=== PATIENT | male | born 1935 | race Caucasian/White ===

== ENCOUNTER 2021-03-12 08:40 | Emergency (ER) | payer MEDICARE, OTHER ==
[~2021-03-12] VITALS: Ht 177.8 cm; Wt 69.7 kg
[~2021-03-12 08:40] MED LIST: SIMV20TA18 PO; TRIA1CAP3 PO; WARF4TAB64 PO; WARF4TAB68 PO
--- NOTE | 2021-03-12 09:03 | PHYS DOC ---
Past History Past Medical History: CAD, CHF Past Surgical History: Pacemaker Alcohol Use: None Drug Use: None General Adult EDM: Chief Complaint: MULTIPLE COMPLAINTS HPI: HPI: Patient is a 85 year old male on warfarin who presents with a fall approximately a week ago. Has had ongoing left-sided chest wall pain. Denies shortness of breath, but pain is worse with deep inspiration and with coughing. He has been fatigued and having a harder time getting around since then. Denies head strike, LOC, headache, or confusion since. Denies any neck pain or midline back pain. Denies hip pain. States that he was working out in the field when he tripped and fell onto his left side. Review of Systems: Review of Systems: Constitutional: Denies fever or chills Eyes: Denies change in visual acuity HENT: Denies nasal congestion or sore throat Respiratory: Denies cough or shortness of breath Cardiovascular: Denies palpitations or edema GI: Denies abdominal pain, nausea, vomiting, bloody stools or diarrhea : Denies dysuria Musculoskeletal: + chest wall pain, Denies back pain or joint pain Integument: Denies rash Neurologic: Denies headache, focal weakness or sensory changes Endocrine: Denies polyuria or polydipsia Lymphatic: Denies swollen glands Psychiatric: Denies depression or anxiety Family History: Family History: No pertinent family history Allergies: Allergies: Allergies Coded Allergies Type Severity Reaction Last Updated Verified Penicillins Allergy Intermediate 06/20/14 Yes Physical Exam: PE: Constitutional: Well developed, well nourished, no acute distress, non-toxic appearance. [] HENT: Normocephalic, atraumatic, bilateral external ears normal, oropharynx moist, no oral exudates, nose normal. [] Eyes: PERRLA, EOMI, conjunctiva normal, no discharge. [] Neck: No C-spine tenderness to palpation of the midline. Normal range of motion. Trachea midline.. [] Cardiovascular:Heart rate regular rhythm, no murmur [] Lungs & Thorax: Normal chest excursion bilaterally. Normal work of breathing. Lung sounds present bilaterally. No chest wall crepitus. Does have left lateral rib tenderness to palpation. [] Abdomen: Soft nondistended. LUQ tenderness to palpation [] Skin: Warm, dry, no erythema, no rash. [] Back: No tenderness, no CVA tenderness. [] Extremities: No tenderness, no cyanosis, no clubbing, ROM intact, no edema. [] Neurologic: Alert and oriented X 3, normal motor function, normal sensory function, no focal deficits noted. [] Psychologic: Affect normal, judgement normal, mood normal. [] EKG: EKG: [] Radiology/Procedures: Radiology/Procedures: [] Impressions: [place] [id number] IMAGING REPORT Signed PATIENT: KAROLYN HART ACCOUNT: [id number] : 1935 LOCATION: ER AGE: 85 SEX: M EXAM STATUS: REG ER ORD. PHYSICIAN: REHANA CARTER MD REASON: fall, on warfarin PROCEDURE: CT HEAD AND CERVICAL SPINE WO CT HEAD AND C-SPINE WO History: Fall on warfarin Comparison: None. Technique: Noncontrast CT of the head and cervical spine. Findings: CT HEAD: There is no evidence for intracranial mass or hemorrhage. There is no hydrocephalus or midline shift. No abnormal extra-axial fluid collections are present. Anderson/white matter differentiation is preserved. The visualized paranasal sinuses and mastoid air cells are clear. The skull and scalp are within normal limits. CT CERVICAL SPINE: There is no evidence for fracture in the cervical spine. Straightening of the normal cervical lordosis. Multilevel degenerative disc and facet disease with moderate to severe disc space narrowing at C3-C4, C5-C6 and C6-C7. Circumferential osteophyte at C3-C4 narrows the thecal space to 7 mm. C5-C6 osteophyte narrows the thecal space to 8 mm. No destructive osseous lesions are seen. Limited evaluation of the soft tissues of the neck and of the upper chest is unremarkable. Impression: 1. No acute intracranial findings. 2. No acute osseous abnormality in the cervical spine. 3. Multilevel degenerative disc and facet disease of the cervical spine causes cervical stenosis at a few levels, 7 mm AP thecal space at C3-C4. ------- Exposure: One or more of the following individualized dose reduction techniques were utilized for this examination: 1. Automated exposure control 2. Adjustment of the mA and/or kV according to patient size 3. Use of iterative reconstruction technique. Electronically signed by: Baldemar Carrera MD (03/12/2021 10:33 AM) [id number] DICTATED AND SIGNED BY: BALDEMAR CARRERA MD DATE: 03/12/21 1028 CC: REHANA CARTER MD; SYEDA CARTY MD ~MTH0 [address] [address] IMAGING REPORT Signed PATIENT: KAROLYN HART ACCOUNT: [id number] : 1935 LOCATION: ER AGE: 85 SEX: M EXAM STATUS: REG ER ORD. PHYSICIAN: REHANA CARTER MD REASON: fall on blood thinners, left chest wall pain, LUQ ttp PROCEDURE: CT CHEST ABD PELVIS W/CONTRAST EXAM: CT Chest, Abdomen and Pelvis with IV contrast CLINICAL HISTORY: Reason: fall on blood thinners, left chest wall pain, LUQ ttp / Spl. Instructions: OMNI 300 60ML REDUCED DOSE , CREAT 1.2 / History: COMPARISON: None. TECHNIQUE: Helical CT of the chest, abdomen and pelvis was performed following the administration of intravenous contrast. Axial, coronal and sagittal reformatted images were generated. ---PQRS compliance statement - One or more of the following individualized dose reduction techniques were utilized for this study: 1. Automated exposure control 2. Adjustment of the mA and/or kV according to patient size 3. Use of iterative reconstruction technique--- FINDINGS: Chest: Heart is mildly enlarged. Coronary calcifications are seen. Pacer leads are seen within the heart. Enlargement of the right atrium and left atrium. Mitral annular and aortic root calcifications are seen. Enlargement of the pulmonary arteries there is no pulmonary arterial hypertension. Small left and smal [id number]-pf-hnubseyy right pleural effusions. Prominent axillary lymph nodes are seen. Enlarged mediastinal and hilar lymph nodes are seen. For example: Right paratracheal lymph node measures 1.5 x 1.3 cm (5/32) distal esophageal thickening may be seen with esophagitis or esophageal mass and can be correlated with endoscopy if clinically indicated. Trace right pneumothorax. Right pleural thickening and enhancement. Abdomen and Pelvis: Liver and biliary system: 11 mm enhancing posterior right hepatic lobe lesion. Liver is mildly nodular in contour may be seen with cirrhosis. Heterogeneous attenuation of the liver 2.3 x 2 cm low-density lesion is seen (image 43). Accounting for postcholecystectomy change, no biliary ductal dilatation. Spleen: Unremarkable Pancreas: Unremarkable Adrenal glands: Unremarkable Kidneys: Symmetric nephrograms. Exophytic 1.5 cm right upper pole renal lesion measures about 45 Hounsfield units. Subcentimeter hypodense left upper pole renal lesion is too small to accurately characterize. Lymph nodes/retroperitoneum: Abdominal and pelvic lymphadenopathy. [employer] Forms lymph nodes: Left para-aortic lymph node measures 2.1 x 1.5 cm (series 8 image 61). Right iliac chain lymphadenopathy measures 1.3 x 1 cm. Vessels: Patient are seen. Dense splenic artery calcifications and SMA calcifications are seen. Bowel/Peritoneal cavity: Appendix is normal. Moderate colonic stool content is seen. No small or large bowel dilatation. No bowel obstruction. Eccentric thickening of the rectum (series 8 image 132) No abdominal pelvic ascites. Abdominal wall: Trace fat-containing periumbilical hernia is seen. Bladder: Small bladder diverticula are seen. Gallbladder wall thickening may be seen with cystitis. Bones: Decreased bone density limits evaluation for aggressive bony lesion. Within these constraints no aggressive osseous lesion is seen. Advanced multilevel degenerative changes of the spine are noted. Nondisplaced fracture of the right eighth and ninth ribs laterally. Acute fractures of the posterior right first and second ribs. Acute displaced fractures of the posterolateral left eighth-11th ribs posterolaterally. Nondisplaced fracture of the left L1 transverse process. Left iliopsoas bursal distention is incidentally seen. IMPRESSION: 1. Acute fractures of the ribs bilaterally as described above. Trace right pneumothorax. 2. Bilateral pleural effusions. 3. Bilateral interstitial prominence and patchy opacities of the lungs, possibly infectious/inflammatory process although underlying chronic interstitial lung disease may have this appearance as well. 4. Enhancing posterior right hepatic lobe lesion is nonspecific and although may represent flash filling hemangioma. 5. Heterogeneous attenuation of the liver possibly from cirrhosis although underlying low-density liver lesions are also consideration. 6. Thoracic, abdominal and pelvic lymphadenopathy or possibly reactive although metastatic disease is a consideration. 7. Thickening of the rectum and esophagus, possibly prostatitis/colitis and esophagitis. Underlying mass is not excluded and can be correlated with colonoscopy/endoscopy. Electronically signed by: Junior Pacheco MD (03/12/2021 10:36 AM) [id number] DICTATED AND SIGNED BY: JUNIOR PACHECO MD DATE: 03/12/21 1019 CC: REHANA CARTER MD; SYEDA CARTY MD ~MTH0 0 Heart Score: C/O Chest Pain: N/A (Traumatic chest wall pain) Risk Factors: Risk Factors: DM, Current or recent (<one month) smoker, HTN, HLP, family history of CAD, obesity. Risk Scores: Score 0 - 3: 2.5% MACE over next 6 weeks - Discharge Home Score 4 - 6: 20.3% MACE over next 6 weeks - Admit for Clinical Observation Score 7 - 10: 72.7% MACE over next 6 weeks - Early Invasive Strategies Course & Med Decision Making: Course & Med Decision Making Pertinent Labs and Imaging studies reviewed. (See chart for details) Patient 85-year-old male on warfarin who presents with ongoing left-sided chest wall pain since a mechanical fall from standing 1 week ago. On arrival is alert, oriented, and hemodynamically stable. Exam pertinent for left-sided chest wall tenderness, and left upper quadrant tenderness to palpation. Due to concern for rib fracture, potential hemothorax, and potentially splenic injury CT chest, abdomen, pelvis obtained. Due to his age and fall on a blood thinner, CT head and neck will also be performed. 0903 CT shows multiple bilateral rib fractures, L1 transverse process fracture, trace pneumothorax on the right, and bilateral pleural effusions/potential hemothorax. His vital signs remained stable. I do not feel that he requires emergent ED chest tube placement. INR is 1.7. Will not reverse. Hemoglobin is 11, with unknown baseline. is arrived and states that he has had increasing weakness and pain over the past few days. With these multiple injuries will discuss admission to [facility] with trauma surgeon on-call. 1050 Discussed transfer with on-call surgeon, Dr. Garza, who felt the patient was suitable for admission to the [facility]. Will discuss transfer with hospitalist. 1112 [facility] transfer center indicates that there are no ICU or intermediate care beds. Will attempt to call other facilities with trauma services. 1145 Accepted for ED to ED transfer at [facility]. 1208 Frank Disclaimer: Frank Disclaimer: This electronic medical record was generated, in whole or in part, using a voice recognition dictation system. Departure Departure: Impression: Primary Impression: Multiple fractures of ribs, bilateral, initial encounter for closed fracture Additional Impressions: Bilateral pleural effusion Pneumothorax, right Disposition: 02 SHORT TERM [facility]OSPITAL Condition: STABLE Referrals: SYEDA CARTY MD (PCP) REHANA CARTER MD Mar 12, 2021 09:03
[2021-03-12 09:20] LABS: BASO % 1 % (0-3); EOS # 0.2 x10^3/uL (0.0-0.7); EOS % 3 % (0-3); HEMATOCRIT 32.7 % (39.0-53.0); LYMPH # 0.8 x10^3/uL (1.0-4.8); LYMPH % 11 % (24-48); MEAN CORPUSCULAR HEMOGLOBIN 32 pg (25-35); MEAN CORPUSCULAR HGB CONC 34 g/dL (31-37); MEAN CORPUSCULAR VOLUME 95 fL (79-100); MONO # 0.6 x10^3/uL (0.0-1.1); MONO % 9 % (0-9); NEUT # 5.8 x10^3uL (1.8-7.7); NEUT % 78 % (31-73); PLATELET COUNT 278 x10^3/uL (140-400); RED BLOOD COUNT 3.43 x10^6/uL (4.30-5.70); RED CELL DISTRIBUTION WIDTH 13.9 % (11.5-14.5); WHITE BLOOD COUNT 7.5 x10^3/uL (4.0-11.0)
[2021-03-12 09:26] LABS: CALCIUM 8.7 mg/dL (8.5-10.1); CREATININE 1.2 mg/dL (0.7-1.3); GFR 57.3; POTASSIUM 5.6 mmol/L (3.5-5.1)
[2021-03-12] MEDS ORDERED: IOHEXOL 300 MG/ML 75 ML VIAL. IV ONE (09:30)
[2021-03-12 09:31] LABS: ALBUMIN 3.4 g/dL (3.4-5.0); ALBUMIN/GLOBULIN RATIO 0.8 (1.0-1.7); TOTAL BILIRUBIN 1.6 mg/dL (0.2-1.0); TOTAL PROTEIN 7.6 g/dL (6.4-8.2)
[2021-03-12 10:17] VITALS: BP 136/69
--- NOTE | 2021-03-12 10:25 | EKG ---
[address] [address] Test Date: 2021-03-12 Test Time: 10:18:06 Pat Name: KAROLYN HART Department: Room: Gender: M Utility Tech: : 1935 Requested By: REHANA CARTER Order Number: [id number] Reading MD: Measurements Intervals Lillian Rate: 95 P: MO: QRS: 54 QRSD: 128 T: 132 QT: 366 QTc: 463 Interpretive Statements ACCELERATED JUNCTIONAL RHYTHM LOW LIMB LEAD VOLTAGE LEFT BUNDLE BRANCH BLOCK ABNORMAL ECG RI6.02 No previous ECG available for comparison
--- NOTE | 2021-03-12 10:35 | RAD ---
CT HEAD AND C-SPINE WO History: Fall on warfarin Comparison: None. Technique: Noncontrast CT of the head and cervical spine. Findings: CT HEAD: There is no evidence for intracranial mass or hemorrhage. There is no hydrocephalus or midline shift. No abnormal extra-axial fluid collections are present. Anderson/white matter differentiation is preserved. The visualized paranasal sinuses and mastoid air cells are clear. The skull and scalp are within normal limits. CT CERVICAL SPINE: There is no evidence for fracture in the cervical spine. Straightening of the normal cervical lordosis. Multilevel degenerative disc and facet disease with moderate to severe disc space narrowing at C3-C4, C5-C6 and C6-C7. Circumferential osteophyte at C3-C4 narrows the thecal space to 7 mm. C5-C6 osteophyte narrows the th ecal space to 8 mm. No destructive osseous lesions are seen. Limited evaluation of the soft tissues of the neck and of the upper chest is unremarkable. Impression: 1. No acute intracranial findings. 2. No acute osseous abnormality in the cervical spine. 3. Multilevel degenerative disc and facet disease of the cervical spine causes cervical stenosis at a few levels, 7 mm AP thecal space at C3-C4. ------- Exposure: One or more of the following individualized dose reduction techniques were utilized for thi s examination: 1. Automated exposure control 2. Adjustment of the mA and/or kV according to patient size 3. Use of iterative reconstruction technique. Electronically signed by: Baldemar Pziano MD (03/12/2021 10:33 AM) [id number]
--- NOTE | 2021-03-12 10:39 | RAD ---
EXAM: CT Chest, Abdomen and Pelvis with IV contrast CLINICAL HISTORY: Reason: fall on blood thinners, left chest wall pain, LUQ ttp / Spl. Instructions: OMNI 300 60ML REDUCED DOSE , CREAT 1.2 / History: COMPARISON: None. TECHNIQUE: Helical CT of the chest, abdomen and pelvis was performed following the administration of intravenous contrast. Axial, coronal and sagittal reformatted images were generated. ---PQRS compliance statement - One or more of the following individualized dose reduction techniques were utilized for this study: 1. Automated exposure control 2. Adjustment of the mA and/or kV according to patient size 3. Use of iterative reconstruction technique--- FINDINGS: Chest: Heart is mildly enlarged. Coronary calcifications are seen. Pacer leads are seen within the heart. En largement of the right atrium and left atrium. Mitral annular and aortic root calcifications are seen . Enlargement of the pulmonary arteries there is no pulmonary arterial hypertension. Small left and s [id number] right pleural effusions. Prominent axillary lymph nodes are seen. Enlarged mediastinal and hilar lymph nodes are seen. For exa mple: Right paratracheal lymph node measures 1.5 x 1.3 cm (5/32) distal esophageal thickening may be seen w ith esophagitis or esophageal mass and can be correlated with endoscopy if clinically indicated. Trace right pneumothorax. Right pleural thickening and enhancement. Abdomen and Pelvis: Liver and biliary system: 11 mm enhancing posterior right hepatic lobe lesion. Liver is mildly nodula r in contour may be seen with cirrhosis. Heterogeneous attenuation of the liver 2.3 x 2 cm low-densit y lesion is seen (image 43). Accounting for postcholecystectomy change, no biliary ductal dilatation . Spleen: Unremarkable Pancreas: Unremarkable Adrenal glands: Unremarkable Kidneys: Symmetric nephrograms. Exophytic 1.5 cm right upper pole renal lesion measures about 45 Houn sfield units. Subcentimeter hypodense left upper pole renal lesion is too small to accurately charact erize. Lymph nodes/retroperitoneum: Abdominal and pelvic lymphadenopathy. [employer] lymph nodes: Left p louis-aortic lymph node measures 2.1 x 1.5 cm (series 8 image 61). Right iliac chain lymphadenopathy me asures 1.3 x 1 cm. Vessels: Patient are seen. Dense splenic artery calcifications and SMA calcifications are seen. Bowel/Peritoneal cavity: Appendix is normal. Moderate colonic stool content is seen. No small or lar ge bowel dilatation. No bowel obstruction. Eccentric thickening of the rectum (series 8 image 132) No abdominal pelvic ascites. Abdominal wall: Trace fat-containing periumbilical hernia is seen. Bladder: Small bladder diverticula are seen. Gallbladder wall thickening may be seen with cystitis. Bones: Decreased bone density limits evaluation for aggressive bony lesion. Within these constraints no aggressive osseous lesion is seen. Advanced multilevel degenerative changes of the spine are noted . Nondisplaced fracture of the right eighth and ninth ribs laterally. Acute fractures of the posterio r right first and second ribs. Acute displaced fractures of the posterolateral left eighth-11th ribs posterolaterally. Nondisplaced fracture of the left L1 transverse process. Left iliopsoas bursal dist ention is incidentally seen. IMPRESSION: 1. Acute fractures of the ribs bilaterally as described above. Trace right pneumothorax. 2. Bilateral pleural effusions. 3. Bilateral interstitial prominence and patchy opacities of the lungs, possibly infectious/inflamma tory process although underlying chronic interstitial lung disease may have this appearance as well. 4. Enhancing posterior right hepatic lobe lesion is nonspecific and although may represent flash nelda ling hemangioma. 5. Heterogeneous attenuation of the liver possibly from cirrhosis although underlying low-density li noe lesions are also consideration. 6. Thoracic, abdominal and pelvic lymphadenopathy or possibly reactive although metastatic disease i s a consideration. 7. Thickening of the rectum and esophagus, possibly prostatitis/colitis and esophagitis. Underlying mass is not excluded and can be correlated with colonoscopy/endoscopy. Electronically signed by: Junior Rivers MD (03/12/2021 10:36 AM) [facility]
[2021-03-12] MEDS ORDERED: LIDOCAINE (700MG/PATCH) PATCH. TD SCH (12:00)
[2021-03-12] MEDS ORDERED: PATCH REMOVAL. MC SCH (21:00)
== END 2021-03-12 13:06 | disposition short-term general hospital (02) ==
LOC: ER 08:40
DX: S22.43XA Multiple fractures of ribs, bilateral, initial encounter for closed fracture (principal); J90 Pleural effusion, not elsewhere classified; J93.9 Pneumothorax, unspecified; Z88.0 Allergy status to penicillin; W18.39XA Other fall on same level, initial encounter; Y93.89 Activity, other specified; Y92.89 Other specified places as the place of occurrence of the external cause; Y99.8 Other external cause status
CPT/HCPCS: 36415; 70450; 71260; 72125; 74177; 80053; 85025; 85610; 93005; 99285; Q9967

== ENCOUNTER 2021-04-02 22:17 | Inpatient (IN) | payer MEDICARE, OTHER ==
[~2021-04-02] VITALS: Ht 172.7 cm; Wt 69.7 kg
--- NOTE | 2021-04-02 23:10 | PHYS DOC ---
Past History Past Medical History: CAD, CHF Additional Past Medical Histor: Celiac disease (ALEJANDRO BHANDARI MD) Past Surgical History: Cholecystectomy, Pacemaker (ALEJANDRO BHANDARI MD) Alcohol Use: None Drug Use: None (ALEJANDRO BHANDARI MD) Adult General Chief Complaint Chief Complaint: OTHER COMPLAINTS HPI HPI Patient is an 85-year-old male with a history of bypass, CAD and CHF on warfarin who presents to the emergency department via EMS after being found down in his house at home by a friend about 8:30 PM. Per patient sghydr-jb-rxh who helps take care of him, she talked to him at about 1 PM today and stated that he did not sound good and was slurring his speech at that time and seemed confused. Patient's lnpleq-cj-hng stated that he is usually not like that and is usually very talkative but he was definitely confused and slurring his speech at that time. States she talked to him 2 more times after that and he was approximately the same. States that she called the patient's sister to let them know, and got a hold of a family friend who went over to check on him and found it about 8:30 PM. (ALEJANDRO BHANDARI MD) Review of Systems Review of Systems Review of systems otherwise unremarkable except noted in HPI (ALEJANDRO BHANDARI MD) Allergies Allergies Allergies Coded Allergies Type Severity Reaction Last Updated Verified Penicillins Allergy Intermediate 06/20/14 Yes gluten Allergy Unknown 03/12/21 Yes (ALEJANDRO BHANDARI MD) Physical Exam Physical Exam Constitutional: Well developed, well nourished, no acute distress, non-toxic appearance. [] HENT: Normocephalic, atraumatic, bilateral external ears normal, oropharynx moist, no oral exudates, nose normal. [] Eyes: PERRLA, EOMI, conjunctiva normal, no discharge. [] Neck: Normal range of motion, no tenderness, supple, no stridor. [] Cardiovascular:Heart rate regular rhythm, no murmur [] Lungs & Thorax: Bilateral breath sounds clear to auscultation [] Abdomen: Bowel sounds normal, soft, no tenderness, no masses, no pulsatile masses. [] Skin: Warm, dry, no erythema, no rash. [] Back: No tenderness, no CVA tenderness. [] Extremities: No tenderness, no cyanosis, no clubbing, ROM intact, no edema. [] Neurologic: Alert and oriented to person and place but seems confused, normal motor function, normal sensory function, cranial nerves intact, able to sit, stand and walk, no focal deficits noted. [] Psychologic: Affect normal, judgement normal, mood normal. [] (ALEJANDRO BHANDARI MD) Current Patient Data Vital Signs Vital Signs Date Time Temp Pulse Resp B/P (MAP) Pulse Ox O2 Delivery O2 Flow Rate FiO2 04/02/21 22:26 96.2 92 18 147/83 95 Nasal Cannula 2.0 (ALEJANDRO BHANDARI MD) EKG EKG Rate of 99, QRS of 130, QTc of 475, no STEMI, left bundle branch block [] (ALEJANDRO BHANDARI MD) Radiology/Procedures Radiology/Procedures [] (ALEJANDRO BHANDARI MD) Heart Score C/O Chest Pain: No Risk Factors: Risk Factors: DM, Current or recent (<one month) smoker, HTN, HLP, family history of CAD, obesity. Risk Scores: Risk Factors: DM, Current or recent (<one month) smoker, HTN, HLP, family history of CAD, obesity. (ALEJANDRO BHANDARI MD) Course & Med Decision Making Course & Med Decision Making Patient is an 85-year-old male with significant CAD on warfarin and CHF who presents after being found down, confused at his house at about 8:30 PM with last known normal at 1:30 PM today. Vital signs notable for hypothermia and hypertension. Physical exam noted ab ove. Patient placed on the monitor with IV access established. Initial EKG noted above with no STEMI but does have a left bundle branch block. Troponin mildly elevated at 0.16 Other lab abnormalities include hyperkalemia, hypermagnesemia and RIKY. Urina lysis with hematuria. CT of the head with no acute intracranial abnormality. CT of the chest abdomen pelvis with slightly increased moderate right and small left pleural effusions with atelectasis and unchanged subpleural groundglass and reticular opacities reflecting interstitial lung disease with unchanged healing left posterior rib fractures, prostamegaly and bladder wall thickening. Given patient's overall clinical picture, was started on antibiotics to cover respiratory, etiology of infection. Patient started on IV fluid resuscitation, Lasix, calcium gluconate, insulin and dextrose for hyperkalemia, hypermagnesemia and RIKY. Repeat potassium at 6.5 down from 6.9 and repeat creatinine down to 1.7 from 1.9. Lactate improved. Troponin improved. Patient's vital signs significantly improved. Repeat dose of insulin, dextrose, Lasix and fluid before morning labs. Patient care handed off to day team. (ALEJANDRO BHANDARI MD) Course & Med Decision Making I assumed care of patient after comprehensive signout from off going physician. Patient tolerated all ER intervention provided so far. Repeat morning blood work improved. Still pending admission. No noteworthy events prior to hospital admission under my shift (KARMA CANNON DO) Dragon Disclaimer Dragon Disclaimer This electronic medical record was generated, in whole or in part, using a voice recognition dictation system. (ALEJANDRO BHANDARI MD) Departure Departure: Impression: Primary Impression: Hyperkalemia Additional Impressions: Hypermagnesemia RIKY (acute kidney injury) Elevated troponin Altered mental status Disposition: ADMITTED INPATIENT Admitting Physician: Gabrielle Escobar (ALEJANDRO BHANDARI MD) Admitting Physician: Gabrielle Escobar (KARMA CANNON DO) Condition: STABLE Referrals: SYEDA CARTY MD (PCP) Problem Qualifiers ALEJANDRO BHANDARI MD Apr 02, 2021 23:10 KARMA CANNON DO Apr 03, 2021 06:28
[2021-04-02 23:28] LABS: BASO % 0 % (0-3); EOS % 0 % (0-3); HEMATOCRIT 41.4 % (39.0-53.0); HEMOGLOBIN 13.2 g/dL (13.0-17.5); LYMPH # 0.5 x10^3/uL (1.0-4.8); LYMPH % 5 % (24-48); MEAN CORPUSCULAR HEMOGLOBIN 32 pg (25-35); MEAN CORPUSCULAR HGB CONC 32 g/dL (31-37); MEAN CORPUSCULAR VOLUME 101 fL (79-100); MONO # 1.1 x10^3/uL (0.0-1.1); MONO % 10 % (0-9); NEUT # 8.9 x10^3uL (1.8-7.7); NEUT % 84 % (31-73); PLATELET COUNT 245 x10^3/uL (140-400); RED BLOOD COUNT 4.11 x10^6/uL (4.30-5.70); RED CELL DISTRIBUTION WIDTH 16.6 % (11.5-14.5); WHITE BLOOD COUNT 10.5 x10^3/uL (4.0-11.0)
[2021-04-02] MEDS ORDERED: CONTRAST GIVEN. MC PRN (23:30)
[2021-04-02 23:43] LABS: ALBUMIN 3.7 g/dL (3.4-5.0); ALBUMIN/GLOBULIN RATIO 0.9 (1.0-1.7); CALCIUM 8.7 mg/dL (8.5-10.1); CREATININE 1.9 mg/dL (0.7-1.3); GFR 33.7; MAGNESIUM 2.9 mg/dL (1.8-2.4); TOTAL BILIRUBIN 1.9 mg/dL (0.2-1.0); TOTAL PROTEIN 7.7 g/dL (6.4-8.2)
[2021-04-02] MEDS ORDERED: IOHEXOL 300 MG/ML 75 ML VIAL. IV ONE (23:45)
[2021-04-02 23:49] LABS: POTASSIUM 6.9 mmol/L (3.5-5.1)
[2021-04-03] MEDS ORDERED: LIDOCAINE 2% TOPICAL JELLY 5GM TUBE. TP ONE (00:02)
--- NOTE | 2021-04-03 00:17 | EKG ---
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
--- NOTE | 2021-04-03 00:28 | RAD ---
EXAM: CT head without contrast INDICATION: Altered mental status COMPARISON: CT head and C-spine 03/12/2021 TECHNIQUE: Axial CT imaging through the head without intravenous contrast. Sagittal and coronal refor mats were obtained. One or more of the following individualized dose reduction techniques were utilized for this examinat ion: 1. Automated exposure control 2. Adjustment of the mA and/or kV according to patient size 3. Use of iterative reconstruction technique. FINDINGS: The ventricles and sulci are mildly enlarged. There is mild periventricular white matter hypoattenuat ion. Collins-white matter differentiation is maintained. There is no intracranial hemorrhage, acute infa rct, or mass lesion. Basal cisterns are clear. The skull and scalp are intact. Paranasal sinuses and mastoid air cells are clear. Globes and orbits are intact.. IMPRESSION: No acute intracranial abnormality. Electronically signed by: Sylvia Rees MD (04/03/2021 12:26 AM) [id number]
[2021-04-03] MEDS ORDERED: FUROSEMIDE 40 MG/4 ML VIAL IVP ONE ×2 (00:30→03:45)
[2021-04-03] MEDS ORDERED: INSULIN REGULAR 100 UNIT/ML 3ML VIAL. IV ONE ×2 (00:30→03:45)
[2021-04-03] MEDS ORDERED: DEXTROSE 50% 25 GM / 50ML DISP.SYRIN. IV ONE ×2 (00:30→03:45)
[2021-04-03] MEDS ORDERED: IV RINGERS SOLUTION,LACTATED 1,000 ML IV ONE ×2 (00:30→03:45)
[2021-04-03 00:42] LABS: BILIRUBIN,URINE SMALL (NEG); CLARITY,URINE CLEAR; COLOR,URINE YELLOW; GLUCOSE,URINE NEG (NEG); NITRITE,URINE NEG (NEG); SQUAMOUS EPITHELIAL CELL,UR OCC /LPF; WBC,URINE OCC /HPF (0-4)
[2021-04-03 00:43] LABS: BACTERIA,URINE FEW /HPF (0-FEW)
[2021-04-03] MEDS: CALCIUM GLUCONATE 1,000 MG/10 ML VIAL IV SCH ×3 (00:43→03:01)
--- NOTE | 2021-04-03 00:51 | RAD ---
EXAM: CT CHEST, ABDOMEN, AND PELVIS WITHOUT CONTRAST INDICATION: Altered mental status, found on warfarin. COMPARISON: CT chest abdomen pelvis 03/12/2021 TECHNIQUE: Helical CT imaging performed of the chest, abdomen and pelvis without the use of intraveno us contrast. Sagittal and coronal reformats were obtained. One or more of the following individualized dose reduction techniques were utilized for this examinat ion: 1. Automated exposure control 2. Adjustment of the mA and/or kV according to patient size 3. Use of iterative reconstruction technique. FINDINGS: CHEST: Thyroid gland and thoracic inlet: Normal. Heart and great vessels: Heart is enlarged, unchanged. There are surgical changes of CABG. No pericar dial effusion. There is a pacemaker lead in the right ventricle. The thoracic aorta is normal in candido miguel. Mild calcified aortic atherosclerosis. Main pulmonary artery is enlarged. Mediastinum and demetrice: Mild mediastinal and hilar lymphadenopathy. Lungs and pleura: Slightly increased, moderate left and unchanged small right pleural effusion. Adjac ent opacities are likely atelectasis. There are nondependent subpleural reticular and groundglass opa cities in the upper lobes suspicious for interstitial lung disease. Mild atelectasis in the right mid dle lobe. Central airways are clear. Chest wall and axillae: No axillary lymphadenopathy. Bones: There are healing left posterior ninth through 12th rib fractures, unchanged. No acute osseous abnormality. ABDOMEN AND PELVIS: Liver: There is an 8mm enhancing lesion in the posterior right hepatic lobe. Gallbladder/Biliary Tree: The gallbladder is surgically absent. Common bile ducts mildly enlarged james suring 9 mm, likely within normal limits for age and postcholecystectomy state. Pancreas: Normal. . Spleen: Normal. Adrenal Glands: Normal. Kidneys/Ureters/Bladder: Kidneys are mildly atrophic and enhance symmetrically.. A 1.5 cm hypodense e xophytic right renal lesion with greater than fluid density is unchanged and indeterminate. No hydron ephrosis. Ureter is are normal. Bladder is incompletely distended with circumferential wall thickenin g. There are multiple bladder diverticula. Reproductive Organs: Prostate gland is mildly enlarged. Stomach, small bowel, and colon: Stomach is unremarkable. There is no small bowel obstruction. Rectum is mildly distended with stool. Vasculature: Abdominal aorta is normal in caliber. There is moderate calcified aortoiliac atheroscler osis. Lymph Nodes: Unchanged prominent lam hepatis lymph nodes. Peritoneum and retroperitoneum: New small volume ascites has increased. No free air. Bones: No acute osseous abnormality. 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 Mild d egenerative joint disease of the lumbar spine. IMPRESSION: 1. No new abnormality. 2. Slightly increased, moderate right and small left pleural effusions with adjacent atelectasis. 3. Unchanged subpleural groundglass and reticular opacities in the anterior lungs, most likely refle cting interstitial lung disease. 4. Unchanged healing left posterior rib fractures. 5. Unchanged 8 mm enhancing lesion in the posterior right hepatic lobe, indeterminate but a small fla sh filling hemangioma is possible. 6. Unchanged 1.5 cm exophytic hypodense right renal lesion with greater than fluid density, indetermi reina. Recommend correlation with ultrasound. 7. Diffuse bladder wall thickening, greater anteriorly, nonspecific. Mild prostatomegaly. 8. Unchanged mild lymphadenopathy. Electronically signed by: Sylvia Rees MD (04/03/2021 12:48 AM) [id number]
[2021-04-03] MEDS ORDERED: levoFLOXacin 500 MG TABLET PO ONE (01:30)
[2021-04-03 03:36] LABS: CALCIUM 8.9 mg/dL (8.5-10.1); CREATININE 1.7 mg/dL (0.7-1.3); GFR 38.3; MAGNESIUM 2.8 mg/dL (1.8-2.4)
[2021-04-03 03:39] LABS: POTASSIUM 6.5 mmol/L (3.5-5.1)
--- NOTE | 2021-04-03 03:58 | EKG ---
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
[2021-04-03 06:34] LABS: CREATININE 1.6 mg/dL (0.7-1.3); GFR 41.1; POTASSIUM 5.5 mmol/L (3.5-5.1)
--- NOTE | 2021-04-03 08:00 | NUR ---
pt was admitted at 0755, vss, pt with piv x2 and stevenson in place. pt ambulated to bed with assist. tele monitor applied. pt very forgetful and confused. chair alarm placed. attempted to call pt sister, she did not answer. home meds pulled in from ext med history from pharmacy. Addendum: 04/03/21 at 1609 by BABAR FRANCE RN cardiology consult called
[2021-04-03 08:23] VITALS: BP 104/51
[2021-04-03] MEDS ORDERED: FURO40TA4 PO (09:50)
[2021-04-03] MEDS ORDERED: ATOR40TA59 PO (09:50)
[2021-04-03] MEDS ORDERED: POTA-121 PO (09:50)
[2021-04-03] MEDS ORDERED: LISI-517 PO (09:50)
[2021-04-03] MEDS ORDERED: LIDO1ADH63 TP (09:50)
[2021-04-03 11:20] VITALS: BP 91/55
[2021-04-03] MEDS: IV DEXTROSE 5 %-0.45 % NACL 1,000 ML IV SCH (15:11)
[2021-04-03 16:14] VITALS: BP 118/80
--- NOTE | 2021-04-03 16:37 | HP ---
ADMIT DATE: 04/03/2021 HISTORY OF PRESENT ILLNESS: The patient is an 85-year-old male patient who was brought to the Emergency Room after he was found down in his house at home by a friend around 8:30 p.m. per patient's [id number]-cnh who helps take care of him. She talked to him at about 1 p.m. yesterday, stated that he did not sound good and was slurring his speech at that time and seemed confused. The patient's fddmkg-pr-mge states that he is usually not like that, he is usually very talkative, but he was definitely confused and slurring his speech at that time. She states she talked to him 2 more times after that and he was approximated the same. She called the patient's sister to let them know and get a hold of the family friend who went over to check on him and found him about 8:30 p.m. He was extensively investigated in the Emergency Room, was found to have acute kidney injury, hyperkalemia and hypermagnesemia. His troponin was slightly elevated also at 0.175. The patient was rehydrated, received at least 2 liters of fluid together with calcium gluconate as well as insulin and was admitted for further evaluation. The patient himself seems to be somewhat confused and was unable to at give me any accurate account of his chronology of his medical illness and/or medical problems. According to his qaipiq-hr-vcd, he fell on the pasture at the beginning of this month, was seen and evaluated in the Emergency Room of [facility] and from there he was transferred to the trauma center in [facility] where he stayed for about 4-5 days and from there he was discharged home. 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 His family started him on only about a week ago according to his [id number]-tl-xkj. From what I could gather from him and from his vhqiyl-wj-cmu, the patient probably has coronary artery disease and congestive heart failure as well as hypertension and atrial fibrillation. He has multiple rib fractures when he fell about 2 weeks ago and he was on Coumadin at that time that was discontinued. Apparently, he has celiac disease also. PAST SURGICAL HISTORY: Significant for coronary artery bypass graft surgery, permanent pacemaker placement as well as cholecystectomy. ALLERGIES: ALLERGIC TO PENICILLIN AND GLUTEN. MEDICATIONS: He is currently on the following medication: He was at least on warfarin 4 mg once a day, atorvastatin calcium 40 mg daily, lisinopril 5 mg once a day, potassium chloride 20 mEq twice a day, furosemide 40 mg twice a day, Lidoderm patch apply topically once a day for pain. FAMILY HISTORY: He has two sisters and one brother, all younger. His father at age of 101. Mother at age of 90. SOCIAL HISTORY: He is , has no children. He never smoked, does not drink alcohol. 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 PHYSICAL EXAMINATION: GENERAL: On arrival to the Emergency Room, he apparently was alert, oriented to person and place, but seemed to be confused, although he has no obvious motor and sensory deficit. He is well-developed, well-nourished, in no acute distress. VITAL SIGNS: His heart rate was 92, blood pressure is 147/83, temperature was 96.2, respiratory rate was 18 and oxygen saturation was 95% on 2 liters of oxygen. HEAD, EYES, EARS, NOSE, AND THROAT: Normocephalic, atraumatic. NECK: Supple. HEART: Normal first and second heart sounds, no gallop or murmur. CHEST: Showed central trachea, equal bilateral expansion, air entry, vesicular breath sounds. No crepitation or rhonchi. ABDOMEN: Distended, soft, nontender. NEUROLOGIC: He is somewhat confused, however, all his cranial nerves intact. He moves extremities without difficulty. LABORATORY DATA: On arrival showed a serum sodium of 139, potassium 6.9, chloride 101, bicarbonate 32, anion gap of 6, BUN 56, creatinine 1.9. Estimated GFR was 33 mL per minute. His glucose 133, calcium was 8.7, magnesium was 2.9. Total bilirubin and alkaline phosphatase slightly elevated. AST and ALT are normal. His total protein 7.7, albumin 3.7. His white cell count was 10,500, hemoglobin 13, hematocrit 41, MCV 101 and platelet count 245,000. His prothrombin time was 11.4, INR 1.1, APTT was 23. Urinalysis was essentially unremarkable apart from mild proteinuria. His coronavirus was negative. He did have a CT scan of the head which basically showed the ventricles and sulci are mildly enlarged. There is mild periventricular white matter hypoattenuation, fox-white matter differentiation is maintained. There is no intracranial hemorrhage, acute infarct, or mass lesion. The basal cisterns are clear. The skull and scalp are intact. Paranasal sinuses and mastoid air cells are clear. Globes and orbits are intact. He does have a CT scan of the chest, abdomen and pelvis which basically showed slightly increased moderate right and small left-sided pleural effusion with adjacent atelectasis; unchanged subpleural ground glass and reticular opacities in the anterior lung, most likely reflecting interstitial lung disease; unchanged healing left posterior rib fracture; unchanged 8 mm enhancing lesion in the posterior right hepatic lobe, indeterminate, but a small flash filling hemangioma is possible; unchanged cm exophytic hypodense right renal lesion with greater than fluid density, indeterminate, recommend correlation with ultrasound; diffuse bladder wall thickening, greater anteriorly, nonspecific with mild prostatomegaly; unchanged mild lymphadenopathy. ASSESSMENT: The patient was admitted with: 1. Altered mental status. 2. Acute kidney injury. 3. Hyperkalemia. He was given IV fluid together with calcium gluconate and his lab work actually has slightly improved such that his serum sodium is now 133, potassium down to 5.5, chloride 102, bicarbonate 37, anion gap of 6, BUN 54, creatinine 1.6. Estimated GFR was 41 mL per minute. Glucose was 104, calcium was 9. He has 3 sets of cardiac enzymes, showed troponin fluctuating up and down. PLAN: My plan is to continue with IV fluid in the form of D5 half normal and will repeat his lab work again tomorrow and also consult Physical and Occupational Therapy as well as Cardiology team and decide the further management accordingly. SHERLEY/DIONE DR: Tye TID: [id number]
[2021-04-03 19:44] VITALS: BP 124/71
[2021-04-03] MEDS ORDERED: PATCH REMOVAL. MC SCH (21:00)
[2021-04-03 23:53] VITALS: BP 113/64
[2021-04-04] MEDS: IV DEXTROSE 5 %-0.45 % NACL 1,000 ML IV SCH (00:19)
[2021-04-04 06:20] VITALS: BP 148/72
[2021-04-04 06:20] LABS: BASO % 0 % (0-3); EOS # 0.1 x10^3/uL (0.0-0.7); EOS % 1 % (0-3); HEMATOCRIT 36.3 % (39.0-53.0); HEMOGLOBIN 11.7 g/dL (13.0-17.5); LYMPH # 0.6 x10^3/uL (1.0-4.8); LYMPH % 5 % (24-48); MEAN CORPUSCULAR HEMOGLOBIN 32 pg (25-35); MEAN CORPUSCULAR HGB CONC 32 g/dL (31-37); MEAN CORPUSCULAR VOLUME 100 fL (79-100); MONO # 0.9 x10^3/uL (0.0-1.1); MONO % 8 % (0-9); NEUT # 9.4 x10^3uL (1.8-7.7); NEUT % 85 % (31-73); PLATELET COUNT 190 x10^3/uL (140-400); RED BLOOD COUNT 3.64 x10^6/uL (4.30-5.70); RED CELL DISTRIBUTION WIDTH 15.8 % (11.5-14.5)
[2021-04-04 06:38] LABS: ALBUMIN 3.2 g/dL (3.4-5.0); ALBUMIN/GLOBULIN RATIO 0.8 (1.0-1.7); CREATININE 1.5 mg/dL (0.7-1.3); GFR 44.3; POTASSIUM 5.6 mmol/L (3.5-5.1); TOTAL PROTEIN 7.1 g/dL (6.4-8.2)
--- NOTE | 2021-04-04 08:16 | PDOC2 ---
ALTHEA LYON JOSS 04/04/21 0816: CARDIAC CONSULT DATE OF CONSULT DOS: DATE: 04/04/21 TIME: 08:04 REASON FOR CONSULT Reason for Consult Elevated troponin REFERRING PHYSICIAN Referring Physician Dr. Escobar SOURCE Source: Caregiver, Chart review HPI History of Present Illness This is an 85 yo male who presented secondary to altered mental status. Was found unresponsive by a family friend around 8 pm on Sunday night. [id number] reports she talked to him on the phone Sunday and noted slurred speech and confusion. She contacted him 2 additional times Sunday afternoon/ afternoon and continued to seem confused and have slurred speech. Family friend, who does his chores, went to check on him that evening. He did not answer the door as he usually does. Family friend found him unresponsive in his chair. EMS was called and was brought to the ED for further evaluation and treatment. Labs notable for RIKY, hyperkalemia, hypermagnesemia, lactic acidosis, and mildly elevated troponin level. COVID PCR +. Patient did receive both Moderna vaccines; completed in November of this year. Sustained fall earlier this month with multiple rib fractures. Had inpatient hospitalization at [facility]. Warfarin was discontinued at this time due to significant bruising. This was resumed 03/29/[address] Coreas. PAST MEDICAL HISTORY Cardiovascular: AFIB, CAD, CHF, HTN, hyperipidemia Pulmonary: Other (ILD, pulmonary fibrosis ) PAST SURGICAL HISTORY Past Surgical History: Cholecystectomy, CABG, Pacemaker FAMILY HISTORY Family History: Family History Unknown SOCIAL HISTORY Smoke: No ALCOHOL: none Drugs: None Lives: Alone CURRENT MEDICATIONS Current Medications Current Medications Iohexol (Omnipaque 300 Mg/ml) 75 ml 1X ONCE IV Last administered on 04/03/21at 00:01; Start 04/02/21 at 23:45; Stop 04/02/21 at 23:46; Status DC Info (Do NOT chart on this entry -- for MONITORING) 1 each PRN DAILY PRN MC SEE COMMENTS; Start 04/02/21 at 23:30; Stop 04/04/21 at 23:29 Calcium Gluconate (Calcium Gluconate) 1,000 mg Q1HR IV Last administered on 04/03/21at 03:01; Start 04/03/21 at 00:30; Stop 04/03/21 at 03:01; Status DC Lactated Ringer's 1,000 ml @ 1,000 mls/hr 1X ONCE IV Last administered on 04/03/21at 00:43; Start 04/03/21 at 00:30; Stop 04/03/21 at 01:29; Status DC Dextrose (Dextrose 50%-Water Syringe) 25 gm 1X ONCE IV Last administered on 04/03/21at 00:43; Start 04/03/21 at 00:30; Stop 04/03/21 at 00:31; Status DC Insulin Human Regular (HumuLIN R VIAL) 5 unit 1X ONCE IV Last administered on 04/03/21at 00:45; Start 04/03/21 at 00:30; Stop 04/03/21 at 00:31; Status DC Furosemide (Lasix) 20 mg 1X ONCE IVP Last administered on 04/03/21at 00:44; Start 04/03/21 at 00:30; Stop 04/03/21 at 00:31; Status DC Lidocaine HCl (Xylocaine 2% Topical 5gm Tube) 5 anais [facility] ONCE TP ; Start 04/03/21 at 00:02; Stop 04/03/21 at 00:03; Status DC Levofloxacin (Levaquin) 500 mg 1X ONCE PO Last administered on 04/03/21at 02:07; Start 04/03/21 at 01:30; Stop 04/03/21 at 01:31; Status DC Insulin Human Regular (HumuLIN R VIAL) 5 unit 1X ONCE IV Last administered on 04/03/21at 03:50; Start 04/03/21 at 03:45; Stop 04/03/21 at 03:54; Status DC Lactated Ringer's 1,000 ml @ 1,000 mls/hr 1X ONCE IV Last administered on at 03:47; Start 04/03/21 at 03:45; Stop 04/03/21 at 04:45; Status DC Dextrose (Dextrose 50%-Water Syringe) 25 gm 1X ONCE IV Last administered on 04/03/21at 03:47; Start 04/03/21 at 03:45; Stop 04/03/21 at 03:54; Status DC Furosemide (Lasix) 20 mg 1X ONCE IVP Last administered on 04/03/21at 03:47; Start 04/03/21 at 03:45; Stop 04/03/21 at 03:54; Status DC Lidocaine (Lidoderm) 1 patch DAILY TP ; Start 04/04/21 at 09:00 Warfarin Sodium (Coumadin) 4 mg DAILY16 PO ; Start 04/04/21 at 16:00 Atorvastatin Calcium (Lipitor) 40 mg DAILY PO ; Start 04/04/21 at 09:00 Miscellaneous (Lidoderm Patch Removal) 1 ea QHS MC Last administered on 04/03/21at 21:00; Start 04/03/21 at 21:00 Warfarin Sodium (Coumadin Per Physician) 1 each PRN DAILY PRN MC SEE COMMENTS; Start 04/03/21 at 13:45 Dextrose/Sodium Chloride 1,000 ml @ 100 mls/hr Q10H IV Last administered on 04/04/21at 00:19; Start 04/03/21 at 14:45 Active Scripts Active Reported Atorvastatin Calcium 40 Mg Tablet 1 Tab PO DAILY Lidocaine 1 Each Adh..patch 1 Patch TP DAILY Furosemide 40 Mg Tablet 1 Tab PO BID Lisinopril 5 Mg Tablet 1 Tab PO DAILY Klor-Con M20 (Potassium Chloride) 20 Meq Tab.er.prt 20 Mg PO BID Warfarin Sodium 4 Mg Tablet 1 PO DAILY ALLERGIES Allergies: Coded Allergies: Penicillins (Verified Allergy, Intermediate, 06/20/14) gluten (Verified Allergy, Unknown, 03/12/21) ROS Review of Systems 14 point ROS conducted with pertinent positives noted although limited due to confusion ALLERGY AND IMMUNOLOGY: YES: Seasonal Allergies PHYSICAL EXAM General: Alert, Cooperative, No acute distress, Other (oriented to person only ) Lungs: Other (crackles ) Heart: Other (AFIB, rate controlled ) Abdomen: Soft, No tenderness Extremities: Other (trace bilateral LE edema ) Skin: No breakdown Neuro: Normal speech, Sensation intact Psych/Mental Status: Mood NL, Other (confused ) MUSCULOSKELETAL: Osteoarthritic changes both hands VITALS Vital Signs Vital Signs Date Time Temp Pulse Resp B/P (MAP) Pulse Ox O2 Delivery O2 Flow Rate FiO2 04/04/21 06:20 99.2 111 22 148/72 (97) 91 Nasal Cannula 3.0 LABS LABS Laboratory Tests Test 04/02/21 23:10 04/03/21 00:10 04/03/21 00:40 04/03/21 02:15 White Blood Count 10.5 x10^3/uL (4.0-11.0) Red Blood Count 4.11 x10^6/uL (4.30-5.70) Hemoglobin 13.2 g/dL (13.0-17.5) Hematocrit 41.4 % (39.0-53.0) Mean Corpuscular Volume 101 fL (79-100) Mean Corpuscular Hemoglobin 32 pg (25-35) Mean Corpuscular Hemoglobin Concent 32 g/dL (31-37) Red Cell Distribution Width 16.6 % (11.5-14.5) Platelet Count 245 x10^3/uL (140-400) Neutrophils (%) (Auto) 84 % (31-73) Lymphocytes (%) (Auto) 5 % (24-48) Monocytes (%) (Auto) 10 % (0-9) Eosinophils (%) (Auto) 0 % (0-3) Basophils (%) (Auto) 0 % (0-3) Neutrophils # (Auto) 8.9 x10^3uL (1.8-7.7) Lymphocytes # (Auto) 0.5 x10^3/uL (1.0-4.8) Monocytes # (Auto) 1.1 x10^3/uL (0.0-1.1) Eosinophils # (Auto) 0.0 x10^3/uL (0.0-0.7) Basophils # (Auto) 0.0 x10^3/uL (0.0-0.2) Sodium Level 139 mmol/L (136-145) Potassium Level 6.9 mmol/L (3.5-5.1) Chloride Level 101 mmol/L (98-107) Carbon Dioxide Level 32 mmol/L (21-32) Anion Gap 6 (6-14) Blood Urea Nitrogen 56 mg/dL (8-26) Creatinine 1.9 mg/dL (0.7-1.3) Estimated GFR (Cockcroft-Gault) 33.7 BUN/Creatinine Ratio 29 (6-20) Glucose Level 133 mg/dL (70-99) Calcium Level 8.7 mg/dL (8.5-10.1) Magnesium Level 2.9 mg/dL (1.8-2.4) Total Bilirubin 1.9 mg/dL (0.2-1.0) Aspartate Amino Transf (AST/SGOT) 50 U/L (15-37) Alanine Aminotransferase (ALT/SGPT) 49 U/L (16-63) Alkaline Phosphatase 211 U/L (46-116) Creatine Kinase 55 U/L (39-308) Troponin I Quantitative 0.164 ng/mL (0-0.055) 0.151 ng/mL (0-0.055) Total Protein 7.7 g/dL (6.4-8.2) Albumin 3.7 g/dL (3.4-5.0) Albumin/Globulin Ratio 0.9 (1.0-1.7) Urine Collection Type U cath Urine Color Yellow Urine Clarity Clear Urine pH 5.0 Urine Specific [place] >=1.030 Urine Protein 100 mg/dl (NEG-TRACE) Urine Glucose (UA) Neg mg/dL (NEG) Urine Ketones (Stick) Neg mg/dL (NEG) Urine Blood Mod (NEG) Urine Nitrite Neg (NEG) Urine Bilirubin Small (NEG) Urine Urobilinogen Dipstick 1.0 mg/dL (0.2 mg/dL) Urine Leukocyte Esterase Neg (NEG) Urine RBC 6-10 /HPF (0-2) Urine WBC Occ /HPF (0-4) Urine Squamous Epithelial Cells Occ /LPF Urine Bacteria Few /HPF (0-FEW) Prothrombin Time 11.4 SEC (9.4-11.4) Prothromb Time International Ratio 1.1 (0.9-1.1) Activated Partial Thromboplast Time 23 SEC (23-33) Lactic Acid Level 2.8 mmol/L (0.4-2.0) Test 04/03/21 03:00 04/03/21 03:15 04/03/21 05:55 04/03/21 06:45 Coronavirus (COVID-19)(PCR) Positive (NEGATIVE) SARS-CoV-2 Antigen (Rapid) Negative (NEGATIVE) Sodium Level 138 mmol/L (136-145) 133 mmol/L (136-145) Potassium Level 6.5 mmol/L (3.5-5.1) 5.5 mmol/L (3.5-5.1) Chloride Level 102 mmol/L (98-107) 102 mmol/L (98-107) Carbon Dioxide Level 31 mmol/L (21-32) 37 mmol/L (21-32) Anion Gap 5 (6-14) -6 (6-14) Blood Urea Nitrogen 57 mg/dL (8-26) 54 mg/dL (8-26) Creatinine 1.7 mg/dL (0.7-1.3) 1.6 mg/dL (0.7-1.3) Estimated GFR (Cockcroft-Gault) 38.3 41.1 Glucose Level 130 mg/dL (70-99) 104 mg/dL (70-99) Lactic Acid Level 2.3 mmol/L (0.4-2.0) 1.7 mmol/L (0.4-2.0) Calcium Level 8.9 mg/dL (8.5-10.1) 9.0 mg/dL (8.5-10.1) Magnesium Level 2.8 mg/dL (1.8-2.4) 2.5 mg/dL (1.8-2.4) Creatine Kinase 109 U/L (39-308) Troponin I Quantitative 0.175 ng/mL (0-0.055) Test 04/04/21 06:02 White Blood Count 11.0 x10^3/uL (4.0-11.0) Red Blood Count 3.64 x10^6/uL (4.30-5.70) Hemoglobin 11.7 g/dL (13.0-17.5) Hematocrit 36.3 % (39.0-53.0) Mean Corpuscular Volume 100 fL (79-100) Mean Corpuscular Hemoglobin 32 pg (25-35) Mean Corpuscular Hemoglobin Concent 32 g/dL (31-37) Red Cell Distribution Width 15.8 % (11.5-14.5) Platelet Count 190 x10^3/uL (140-400) Neutrophils (%) (Auto) 85 % (31-73) Lymphocytes (%) (Auto) 5 % (24-48) Monocytes (%) (Auto) 8 % (0-9) Eosinophils (%) (Auto) 1 % (0-3) Basophils (%) (Auto) 0 % (0-3) Neutrophils # (Auto) 9.4 x10^3uL (1.8-7.7) Lymphocytes # (Auto) 0.6 x10^3/uL (1.0-4.8) Monocytes # (Auto) 0.9 x10^3/uL (0.0-1.1) Eosinophils # (Auto) 0.1 x10^3/uL (0.0-0.7) Basophils # (Auto) 0.0 x10^3/uL (0.0-0.2) Sodium Level 137 mmol/L (136-145) Potassium Level 5.6 mmol/L (3.5-5.1) Chloride Level 101 mmol/L (98-107) Carbon Dioxide Level 33 mmol/L (21-32) Anion Gap 3 (6-14) Blood Urea Nitrogen 59 mg/dL (8-26) Creatinine 1.5 mg/dL (0.7-1.3) Estimated GFR (Cockcroft-Gault) 44.3 BUN/Creatinine Ratio 39 (6-20) Glucose Level 149 mg/dL (70-99) Calcium Level 8.0 mg/dL (8.5-10.1) Total Bilirubin 1.0 mg/dL (0.2-1.0) Aspartate Amino Transf (AST/SGOT) 26 U/L (15-37) Alanine Aminotransferase (ALT/SGPT) 38 U/L (16-63) Alkaline Phosphatase 167 U/L (46-116) Total Protein 7.1 g/dL (6.4-8.2) Albumin 3.2 g/dL (3.4-5.0) Albumin/Globulin Ratio 0.8 (1.0-1.7) STRESS TEST Stress Test 11/12/19 - Procedure: D-SPECT MULTI GATED THALLIUM REGADENOSON MPI STRESS TEST SUMMARY/OPINION: This study is normal with no evidence of significant myocardial ischemia. Left ventricular systolic function is normal. There are no high risk prognostic indicators present. The pharmacologic ECG portion of the study is negative for ischemia. Note is made of significant RV dilation on review of the raw images. Comparison is made with a prior Regadenoson thallium study completed 10/03/17. Ejection fraction was 62%. The right ventricle appears more like dilated on the current study. Previous study more suggestive of reversibility to perfusion abnormality involving the basal inferolateral wall, more pronounced on previous study. In aggregate the current study is low risk in regards to predicted annual cardiovascular mortality rate. ASSESSMENT/PLAN Assessment/Plan 1. RIKY, hyperkalemia 2. Acute respiratory failure, COVID + with underling ILD 3. Lactic acidosis 4. Mild troponin elevation; highest 0.175. Most probably type II, demand ischemia. MPI 11/23 without evidence of significant myocardial ischemia as noted above 5. CAD s/p CABG 2004; Follows with [facility], Dr. Coreas 6. Acute on chronic diastolic CHF; LVEF preserved 11/23 per stress test 7. Hypertension; controlled 8. Hyperlipidemia 9. SSS s/p PPM ([employer]); recent device check with normal function, adequate battery life, and stable lead impedances. 10. Permanent AFIB; on warfarin for stroke prophylaxis. This held last month due to traumatic fall; Dr. Coreas resumed 03/29/21. INR 1.1. unclear if he has been taking his meds. Rate controlled overall 11. Metabolic encephalopathy; CT head without acute findings 12. Recent fall with rib fractures; inpatient admission to [facility] Recommendations Lasix IV x1 now CXR Discontinue IVFs Monitor renal function closely Resume secondary prevention Add low-dose BB for rate control Lung optimization Supportive care Outpatient echo JUAN A HANSEN MD 04/04/212049: CARDIAC CONSULT ASSESSMENT/PLAN Assessment/Plan Patient seen and examined. Agree with STONEMASON's assessment and plan. Slight trop elevation prob demand ischemia - CAD/CABG clinically stable Perm AF rate controlled Ac on chr diast HF better compensated SSS s/p PPM with recent check showing normal function Continue management of ARF/Covid/metabolic encephalopathy per IM Thank you for your consultation ALTHEA LYON APRN Apr 04, 2021 08:16 JUAN A HANSEN MD Apr 04, 2021 20:50
[2021-04-04] MEDS ORDERED: ATORVASTATIN CALCIUM 20 MG TABLET PO SCH (09:00)
[2021-04-04] MEDS ORDERED: FUROSEMIDE 40 MG/4 ML VIAL IVP ONE (09:00)
[2021-04-04] MEDS ORDERED: LIDOCAINE (700MG/PATCH) PATCH. TP SCH (09:00)
[2021-04-04 11:05] VITALS: BP 136/65
--- NOTE | 2021-04-04 12:03 | RAD ---
AP chest. HISTORY: Worsening short of breath AP view was taken of the chest. There is a moderate to large left pleural effusion with a small right pleural effusion. The heart is enlarged. Right pacemaker is unchanged. There is interstitial hazy in filtrates or pulmonary edema. IMPRESSION: 1. Bilateral pleural effusions larger on the left. 2. Hazy infiltrates or pulmonary edema. Electronically signed by: Cortez Mayen MD (04/04/2021 12:00 PM) [facility]
[2021-04-04 15:54] VITALS: BP 107/58
[2021-04-04] MEDS ORDERED: WARFARIN 4 MG TABLET. PO SCH (16:00)
--- NOTE | 2021-04-04 16:22 | NUR ---
PO COUMADIN NOT GIVEN, PT IS NOT ALERT ENOUGH TO SWALLOW SAFELY.
[2021-04-04 19:00] VITALS: BP 106/63
[2021-04-04 19:31] VITALS: BP 107/58
[2021-04-04] MEDS ORDERED: EPINEPHrine SYRINGE 1 MG/10 ML SYRINGE ONE (21:00)
[2021-04-04] MEDS ORDERED: METOPROLOL TART IMMED RELEASE 25 MG TABLET. PO SCH (21:00)
--- NOTE | 2021-04-04 21:25 | NUR ---
asystole alarmed on monitor. pts pulse checked luiz hwang called, and cpr began. called unable to get ahold of. will try again in morning. Addendum: 04/05/21 at 0701 by CHELSEA WAN RN RN MARIMAR (04/04/21) [id number]
--- NOTE | 2021-04-04 23:44 | PN ---
DATE: 04/04/2021 SUBJECTIVE: The patient is resting, slightly propped up and very lethargic and responsive. PHYSICAL EXAMINATION: GENERAL: When I examined him, he was pale, but no jaundice, cyanosis, no adenopathy, no thyromegaly, no jugular venous distention. No limb edema. VITAL SIGNS: Her heart rate was 101, blood pressure is 136/65, temperature 97.3, respiratory rate was 16 and oxygen saturation was 97% on 2 liters of oxygen. HEAD, EYES, EARS, NOSE, AND THROAT: Normocephalic, atraumatic. NECK: Supple. HEART: Normal first and second heart sounds. No gallop or murmur. CHEST: Shows central trachea, equally reduced expansion, reduced air entry, vesicular breath sounds, bilateral basal crepitation with dull percussion noted and absent breath sounds on the left side posteriorly. ABDOMEN: Slightly distended, soft, nontender. NEUROLOGIC: He is very encephalopathic. His intake was 3000. No output was recorded. He is actually extremely oliguric despite given treatment with IV Lasix. LABORATORY DATA: This morning showed a white cell count of 11,000, hemoglobin 11.7, hematocrit 36, MCV 100 and platelet count of 190,000. His serum sodium was 137, potassium 5.6, chloride 101, bicarbonate 33, anion gap of 3, BUN 59, and creatinine 1.5. Estimated GFR was 44 mL per minute. His glucose 149. Calcium 8. Total bilirubin, AST, ALT were normal. Alkaline phosphatase slightly elevated. Total protein 7.1, albumin 3.2. His prothrombin time/INR and APTT are all normal. Urinalysis was essentially unremarkable; however, his coronavirus by PCR was positive. ASSESSMENT: 1. Acute kidney injury and hyperkalemia. 2. Acute respiratory failure, multifactorial, probably COVID-19 pneumonia with underlying interstitial lung disease and large bilateral pleural effusion. 3. Coronary artery disease status post CABG. 4. Chronic diastolic congestive heart failure. 5. Hypertension. 6. Hyperlipidemia. 7. Metabolic encephalopathy. PLAN: I have spoken with his [id number] and the plan is for him to be admitted to inpatient hospice care. SHRADDHA DR: Tye TID: [id number]
--- NOTE | 2021-04-08 10:45 | DS ---
HOSPITAL COURSE: The patient is an 85-year-old male patient who was admitted through the Emergency Room where he was actually found down in his house at home by a friend around 8:30 p.m. the day of admission, the patient's [id number] who helps take care of him. He was extensively evaluated in the Emergency Room, was found to have acute kidney injury with marked hyperkalemia and hypermagnesemia. His troponin was slightly elevated at 0.175. The patient was rehydrated, received at least 2 liters of fluid together with calcium gluconate as well as insulin and was admitted for further evaluation. The patient was actually very encephalopathic and on the day of his , he was clearly fluid overloaded, so we treated him with IV Lasix without really any improvement. His condition has continued to deteriorate and we suggested hospice and his family were agreeable to that, but the hospice agency stated he is inappropriate for inpatient hospice services. Apparently, the patient has coded and code blue was called and CPR began and patient was pronounced around 2135 hours on 04/04/2021. CAUSE OF : 1. Cardiopulmonary arrest. 2. Acute hypoxic respiratory failure. 3. Acute on chronic diastolic congestive heart failure. 4. Acute kidney injury. 5. COVID-[address]: Tye TID: [id number]
--- NOTE | 2021-04-11 02:54 | PHYS DOC ---
Past History Past Medical History: CAD, CHF Additional Past Medical Histor: Celiac disease Past Surgical History: Cholecystectomy, Pacemaker Alcohol Use: None Drug Use: None General Adult EDM: Chief Complaint: OTHER COMPLAINTS HPI: HPI: Patient is a 85 year old male who presents with hx of COVID. Found by nursing in cardiopulmonary arrest. Code called at 2127 hrs. Responded to code and progress with CPR and meds given per ACLS protocol. For details see code sheet. Patient was failed to respond to ACLS protocols. Code called at 2135 hrs..The primary and family to be notified. Review of Systems: Review of Systems: Code blue Family History: Family History: N/A Current Medications: Current Meds: Current Medications Medications (Trade) Dose Ordered Sig/Giovanna Start Time Stop Time Status Last Admin Dose Admin Calcium Gluconate (Calcium Gluconate) 1,000 mg Q1HR 04/03/21 00:30 04/03/21 03:01 DC 04/03/21 03:01 1,000 MG Dextrose (Dextrose 50%-Water Syringe) 25 gm 1X ONCE 04/03/21 03:45 04/03/21 03:54 DC 04/03/21 03:47 25 GM Furosemide (Lasix) 20 mg 1X ONCE 04/03/21 03:45 04/03/21 03:54 DC 04/03/21 03:47 20 MG Info (Do NOT chart on this entry -- for MONITORING) 1 each PRN DAILY PRN 04/02/21 23:30 04/04/21 23:29 DC Insulin Human Regular (HumuLIN R VIAL) 5 unit 1X ONCE 04/03/21 03:45 04/03/21 03:54 DC 04/03/21 03:50 5 UNIT Iohexol (Omnipaque 300 Mg/ml) 75 ml 1X ONCE 04/02/21 23:45 04/02/21 23:46 DC 04/03/21 00:01 75 ML Lactated Ringer's 1,000 ml @ 1,000 mls/hr 1X ONCE 04/03/21 03:45 04/03/21 04:45 DC 04/03/21 03:47 1,000 MLS/HR Levofloxacin (Levaquin) 500 mg 1X ONCE 04/03/21 01:30 04/03/21 01:31 DC 04/03/21 02:07 500 MG Lidocaine HCl (Xylocaine 2% Topical 5gm Tube) 5 anais [facility] ONCE 04/03/21 00:02 04/03/21 00:03 DC Allergies: Allergies: Allergies Coded Allergies Type Severity Reaction Last Updated Verified Penicillins Allergy Intermediate 06/20/14 Yes gluten Allergy Unknown 03/12/21 Yes Physical Exam: PE: Pt. in cardiopulmonary arrest Current Patient Data: Vital Signs: Vital Signs Date Time Temp Pulse Resp B/P (MAP) Pulse Ox O2 Delivery O2 Flow Rate FiO2 04/04/21 20:00 Nasal Cannula 2.0 04/04/21 19:31 89 107/58 04/04/21 19:00 97.9 20 95 EKG: EKG: [] Radiology/Procedures: Radiology/Procedures: [] Heart Score: C/O Chest Pain: N/A Risk Factors: Risk Factors: DM, Current or recent (<one month) smoker, HTN, HLP, family history of CAD, obesity. Risk Scores: Score 0 - 3: 2.5% MACE over next 6 weeks - Discharge Home Score 4 - 6: 20.3% MACE over next 6 weeks - Admit for Clinical Observation Score 7 - 10: 72.7% MACE over next 6 weeks - Early Invasive Strategies Course & Med Decision Making: Course & Med Decision Making Pertinent Labs and Imaging studies reviewed. (See chart for details) Patient failed to respond to ACLS protocols for asystole. Code called at 2135 hrs. [] Frank Disclaimer: Tommieon Disclaimer: This electronic medical record was generated, in whole or in part, using a voice recognition dictation system. Departure Departure: Impression: Primary Impression: Hyperkalemia Additional Impressions: Elevated troponin Altered mental status RIKY (acute kidney injury) Hypermagnesemia Disposition: ADMITTED INPATIENT Condition: STABLE Referrals: SYEDA CARTY MD (PCP) EDIS BROWN MD Apr 11, 2021 02:54
== END 2021-04-05 01:50 | DRG 177 ==
LOC: ER 22:17 → 1 SOUTH 04-03 05:48
PROVIDERS: ADMIT Internal Medicine; ATTEND Internal Medicine
PROC: 5A12012 Performance of Cardiac Output, Single, Manual (ICD-10-PCS; principal; 2021-04-04)
DX: U07.1 COVID-19 (principal); G93.41 Metabolic encephalopathy; J12.82 Pneumonia due to coronavirus disease 2019; I50.33 Acute on chronic diastolic (congestive) heart failure; J96.01 Acute respiratory failure with hypoxia; N17.9 Acute kidney failure, unspecified; E87.2 Acidosis; I48.21 Permanent atrial fibrillation; I46.9 Cardiac arrest, cause unspecified; I11.0 Hypertensive heart disease with heart failure; I25.10 Atherosclerotic heart disease of native coronary artery without angina pectoris; E78.5 Hyperlipidemia, unspecified; J84.10 Pulmonary fibrosis, unspecified; I48.91 Unspecified atrial fibrillation; I49.5 Sick sinus syndrome; E87.5 Hyperkalemia; E83.41 Hypermagnesemia; Z95.1 Presence of aortocoronary bypass graft; Z95.0 Presence of cardiac pacemaker; Z90.49 Acquired absence of other specified parts of digestive tract; Z88.8 Allergy status to other drugs, medicaments and biological substances; Z88.0 Allergy status to penicillin; Z79.01 Long term (current) use of anticoagulants
CPT/HCPCS: 36415; 70450; 71045; 71260; 74177; 80048; 80053; 81001; 82550; 83605; 83735; 84484; 85025; 85610; 85730; 87426; 93005; 96361; 96374; 96375; 96376; J0171; J0610; J1815; J1940; J7120; Q9967; U0003; 99285-25